=== PATIENT | female | born 1945 | race Hispanic/Latino ===

== ENCOUNTER 2018-01-17 11:25 | Outpatient (CLI) | payer MEDICARE | END 2018-01-17 11:26 | disposition home or self-care (01) | LOC: BICMAMMO 11:25 | PROVIDERS: ATTEND Nurse Practitioner Family | DX: Z12.31 Encounter for screening mammogram for malignant neoplasm of breast (principal) | CPT/HCPCS: 77063; 77067 ==

== ENCOUNTER 2018-08-30 22:19 | Emergency (ER) | payer MEDICARE | END 2018-08-30 22:53 | disposition left against medical advice (07) | LOC: ERS 22:19 | DX: Z53.21 Procedure and treatment not carried out due to patient leaving prior to being seen by health care provider (principal) ==

== ENCOUNTER 2019-09-23 13:27 | Outpatient (CLI) | payer MEDICARE ==
--- NOTE | 2019-09-23 14:49 | MMO ---
Bilateral MAMMO Bilat Screen [facility]. CLINICAL HISTORY: Patient is 74 years old and is seen for screening. The patient has no family history of breast cancer. The patient has no personal history of cancer. VIEWS: The views performed were: bilateral craniocaudal with tomosynthesis and bilateral mediolateral oblique with tomosynthesis. FILMS COMPARED: The present examination has been compared to prior imaging studies performed at [facility] on 11/15/2014, 12/27/2015, 12/28/2016 and 01/17/2018. This study has been interpreted with the assistance of computer-aided detection. MAMMOGRAM FINDINGS: There are scattered fibroglandular densities. There are no suspicious masses, suspicious calcifications, or new areas of architectural distortion. IMPRESSION: THERE IS NO MAMMOGRAPHIC EVIDENCE OF MALIGNANCY. A ROUTINE FOLLOW-UP MAMMOGRAM IN 1 YEAR IS RECOMMENDED. THE RESULTS OF THIS EXAM WERE SENT TO THE PATIENT. ACR BI-RADS Category 1 - Negative MAMMOGRAPHY NOTE: 1. A negative mammogram report should not delay a biopsy if a dominant of clinically suspicious mass is present. 2. Approximately 10% to 15% of breast cancers are not detected by mammography. 3. Adenosis and dense breasts may obscure an underlying neoplasm. Reported by: HENNY HENNING MD Electonically Signed: [id number]
== END 2019-09-23 13:28 | disposition home or self-care (01) ==
LOC: BICMAMMO 13:27
PROVIDERS: ATTEND Nurse Practitioner Family
DX: Z12.31 Encounter for screening mammogram for malignant neoplasm of breast (principal)
CPT/HCPCS: 77063; 77067

== ENCOUNTER 2021-08-25 18:13 | Emergency (ER) | payer MEDICARE ==
[~2021-08-25 18:13] MED LIST: Iopamidol 370 76% 100 ML VIAL ONE
[2021-08-25] MEDS ORDERED: Ondansetron PF 4 MG/2 ML Vial ONE (18:58)
[2021-08-25] MEDS ORDERED: Dicyclomine 20 MG/2 ML VIAL ONE (18:58)
[2021-08-25 19:20] LABS: #Eosinphils 0.1 thou/uL (0.0-0.7); #Lymphocytes 1.3 thou/uL (1.20-3.40); #Monocytes 0.6 thou/uL (0.11-0.59); #Neutrophils 4.5 thou/uL (1.40-6.50); %Basophils 0.2 % (0.0-1.0); %Eosinophils 1.8 % (0.0-10.0); %Lymphocytes 19.2 % (21.0-51.0); %Monocytes 9.6 % (0.0-10.0); %Neutrophils 69.1 % (42.0-75.0); Hemoglobin 13.5 g/dL (12.0-16.0); Mean Corpuscular HGB CONC 29.7 g/dL (32.0-36.0); Mean Corpuscular Hemoglobin 27.7 pg (27.0-31.0); Mean Corpuscular Volume 93.3 fL (78.0-98.0); Mean Platelet Volume 7.6 fL (7.4-10.4); Platelet Count 222 thou/uL (130-400); RBC Distribution Width 13.7 % (11.5-14.5); Red Blood Cell (RBC) Count 4.87 mill/uL (4.20-5.40); White Blood Cell (WBC) Count 6.5 thou/uL (4.8-10.8)
[2021-08-25 19:33] LABS: Band 18 % (5-11); Eosinophils 4 % (0-10); Lymphocytes 22 % (21-51); MDiff Complete? YES; Monocytes 9 % (0-10); Neutrophil 47 % (42-75); Platelet Morphology Comment Appears Adequate; RBC Morphology Normal
[2021-08-25 19:40] LABS: ALT (SGPT) 16 U/L (8-55); AST (SGOT) 21 U/L (5-34); Albumin 3.3 g/dL (3.4-4.8); Alkaline Phosphatase 98 U/L (40-110); Anion Gap 13 mmol/L (10-20); BUN (Urea Nitrogen) 10 mg/dL (9.8-20.1); Bilirubin, Total 0.5 mg/dL (0.2-1.2); Calc. Creatinine Clearance 0 mL/min (70-130); Calcium 9.4 mg/dL (7.8-10.44); Carbon Dioxide 23 mmol/L (23-31); Chloride 102 mmol/L (98-107); Globulin 3.8 g/dL (2.4-3.5); Glucose 195 mg/dL (83-110); Lipase 12 U/L (8-78); Potassium 3.8 mmol/L (3.5-5.1); Protein, Total 7.1 g/dL (5.8-8.1); Sodium 134 mmol/L (136-145)
== END 2021-08-25 23:20 | disposition home or self-care (01) ==
LOC: ERS 18:13
DX: K52.9 Noninfective gastroenteritis and colitis, unspecified (principal); I10 Essential (primary) hypertension; E78.5 Hyperlipidemia, unspecified; E11.9 Type 2 diabetes mellitus without complications; Z79.4 Long term (current) use of insulin; Z79.899 Other long term (current) drug therapy
CPT/HCPCS: 36415; 74177; 80053; 83690; 84484; 85025; 93005; 96372; 96374; J0500; J2405; Q9967

== ENCOUNTER 2021-11-13 10:07 | Outpatient (CLI) | payer MEDICARE | END 2021-11-13 10:08 | disposition home or self-care (01) | LOC: BICRAD 10:07 | PROVIDERS: ATTEND Nurse Practitioner Family | DX: M47.816 Spondylosis without myelopathy or radiculopathy, lumbar region (principal); M43.16 Spondylolisthesis, lumbar region | CPT/HCPCS: 72110 ==

== ENCOUNTER 2022-03-20 15:52 | Outpatient (CLI) | payer MEDICARE, OTHER | END 2022-03-20 15:53 | disposition home or self-care (01) | LOC: BICRAD 15:52 | PROVIDERS: ATTEND Family Medicine | DX: M79.671 Pain in right foot (principal); M19.071 Primary osteoarthritis, right ankle and foot ==

== ENCOUNTER 2022-07-18 13:39 | Emergency (ER) | payer OTHER, MEDICAID ==
[2022-07-18] MEDS ORDERED: Acetaminophen 500 MG TAB ONE (16:25)
[2022-07-18] MEDS ORDERED: Ketorolac Tromethamine 30 MG/ML VIAL ONE (16:25)
== END 2022-07-18 17:03 | disposition home or self-care (01) ==
LOC: ERS 13:39
DX: M25.512 Pain in left shoulder (principal); E78.5 Hyperlipidemia, unspecified; I10 Essential (primary) hypertension; E11.9 Type 2 diabetes mellitus without complications; W17.2XXA Fall into hole, initial encounter; Y93.01 Activity, walking, marching and hiking; Z79.4 Long term (current) use of insulin
CPT/HCPCS: 70450; 72125; 96372; J1885

== ENCOUNTER 2022-08-16 12:37 | Outpatient (CLI) | payer OTHER, MEDICAID | END 2022-08-16 12:38 | disposition home or self-care (01) | LOC: SCSMRI 12:37 | PROVIDERS: ATTEND Specialist | DX: M51.16 Intervertebral disc disorders with radiculopathy, lumbar region (principal); M47.26 Other spondylosis with radiculopathy, lumbar region; M89.38 Hypertrophy of bone, other site | CPT/HCPCS: 72148 ==

== ENCOUNTER 2022-11-15 22:45 | Observation (INO) | payer OTHER ==
[2022-11-15] MEDS ORDERED: Ondansetron ODT 4 MG TAB ONE (23:17)
[2022-11-15] MEDS ORDERED: Meclizine HCl 25 MG TAB ONE (23:17)
[2022-11-15 23:42] LABS: #Basophils 0.1 thou/uL (0.0-0.2); #Eosinphils 0.1 thou/uL (0.0-0.7); #Monocytes 0.6 thou/uL (0.11-0.59); #Neutrophils 3.5 thou/uL (1.40-6.50); %Basophils 0.9 % (0.0-1.0); %Eosinophils 1.7 % (0.0-10.0); %Lymphocytes 26.7 % (21.0-51.0); %Monocytes 9.9 % (0.0-10.0); %Neutrophils 60.5 % (42.0-75.0); Hemoglobin 13.4 g/dL (12.0-16.0); Mean Corpuscular HGB CONC 32.1 g/dL (32.0-36.0); Mean Corpuscular Hemoglobin 29.3 pg (27.0-31.0); Mean Corpuscular Volume 91.3 fl (78.0-98.0); Platelet Count 254 10x3/uL (130-400); RBC Distribution Width 13.5 % (11.5-14.5); Red Blood Cell (RBC) Count 4.58 mill/uL (4.20-5.40); White Blood Cell (WBC) Count 5.8 10x3/uL (4.8-10.8)
[2022-11-16 00:07] LABS: ALT (SGPT) 12 U/L (8-55); AST (SGOT) 16 U/L (5-34); Albumin 3.6 g/dL (3.4-4.8); Alkaline Phosphatase 96 U/L (40-110); Anion Gap 12 mmol/L (10-20); BUN (Urea Nitrogen) 14 mg/dL (9.8-20.1); Bilirubin, Total 0.5 mg/dL (0.2-1.2); Calc. Creatinine Clearance 0 mL/min (70-130); Calcium 9.5 mg/dL (7.8-10.44); Carbon Dioxide 24 mmol/L (23-31); Chloride 104 mmol/L (98-107); Estimated GFR 76; Globulin 3.1 g/dL (2.4-3.5); Glucose 124 mg/dL (83-110); Potassium 3.9 mmol/L (3.5-5.1); Protein, Total 6.7 g/dL (5.8-8.1); Sodium 136 mmol/L (136-145)
[2022-11-16] MEDS ORDERED: Ondansetron ODT 4 MG TAB ONE (00:18)
[2022-11-16] MEDS ORDERED: Ondansetron PF 4 MG/2 ML Vial IVP PRN (06:59)
[2022-11-16] MEDS ORDERED: Acetaminophen 325 MG TAB PO PRN (06:59)
[2022-11-16] MEDS ORDERED: Dextrose 5% in Water 1,000 ML IV PRN (06:59)
[2022-11-16] MEDS ORDERED: Dextrose 50% Abboject 50 ML SYRINGE SLOW IVP PRN (06:59)
[2022-11-16] MEDS ORDERED: Ondansetron ODT 4 MG TAB PO PRN (06:59)
[2022-11-16] MEDS ORDERED: HumaLOG 300 UNITS/3 ML VIAL SC PRN ×3 (07:02→07:47)
[2022-11-16] MEDS ORDERED: hydrALAZINE 20 MG/ML VIAL SLOW IVP PRN (07:02)
[2022-11-16] MEDS ORDERED: Meclizine HCl 25 MG TAB PO PRN (07:30)
[2022-11-16] MEDS ORDERED: Aspirin 81 mg Enteric Coated Tablet PO SCH (07:30)
[2022-11-16 07:43] VITALS: BMI 40.9
[2022-11-16 08:27] LABS: Hemoglobin A1c 8.1 % (4.0-6.0)
[2022-11-16 08:30] LABS: Cardiac Risk 2.9 (Less than 4.5)
[2022-11-16] MEDS ORDERED: Non-Formulary Item 1 EACH (Levemir Flexpen [Levemir Flexpen] 100 UNITS/ML Pen) SC SCH (09:00)
[2022-11-16] MEDS ORDERED: Non-Formulary Item 1 EACH (Levemir Flexpen [Levemir Flexpen] 20 UNIT) SC SCH (09:00)
[2022-11-16] MEDS ORDERED: Losartan 25 MG TAB PO SCH (09:00)
[2022-11-16] MEDS ORDERED: Non-Formulary Item 1 EACH (Losartan Potassium [Cozaar] 50 MG Tab) PO SCH (09:00)
[2022-11-16] MEDS ORDERED: Lorazepam 0.5 MG TAB PO ONE (09:35)
[2022-11-16] MEDS ORDERED: Lorazepam 0.5 MG TAB PO SCH (09:45)
[2022-11-16] MEDS ORDERED: INSULIN ASPART 10 UNIT SC SCH (11:30)
[2022-11-16] MEDS ORDERED: HumaLOG 300 UNITS/3 ML VIAL SC SCH (11:30)
[2022-11-16] MEDS ORDERED: INSULIN ASPART 100 UNIT/ML SC SCH (11:30)
[2022-11-16] MEDS: HumaLOG 300 UNITS/3 ML VIAL SC SCH ×2 (13:10→18:05)
[2022-11-16 16:10] VITALS: TEMP 97.1
[2022-11-16 17:12] VITALS: BP 119/54
[2022-11-16] MEDS ORDERED: Simvastatin 40 MG TAB PO SCH (21:00)
[2022-11-16] MEDS ORDERED: Insulin Glargine 30 UNITS/0.3 ML VIAL SC SCH (21:00)
[2022-11-16] MEDS ORDERED: Atorvastatin Calcium 20 MG TAB PO SCH (21:00)
[2022-11-16] MEDS ORDERED: Fluticasone Propionate Nasal Spray 16 gm Bottle NASAL SCH (21:00)
[2022-11-17] MEDS ORDERED: Aspirin 81 mg Enteric Coated Tablet PO SCH (09:00)
== END 2022-11-16 18:30 | disposition home or self-care (01) ==
LOC: ERS 22:45 → NEURO 11-16 04:26
PROVIDERS: ADMIT Emergency Medicine; ATTEND Emergency Medicine
DX: H81.10 Benign paroxysmal vertigo, unspecified ear (principal); J30.0 Vasomotor rhinitis; E11.9 Type 2 diabetes mellitus without complications; I10 Essential (primary) hypertension; E78.5 Hyperlipidemia, unspecified; M54.50 Low back pain, unspecified; M19.90 Unspecified osteoarthritis, unspecified site; Z79.4 Long term (current) use of insulin; Z79.899 Other long term (current) drug therapy; Z88.0 Allergy status to penicillin
CPT/HCPCS: 36415; 36416; 70450; 70551; 80053; 80061; 83036; 84443; 85025; 93005; 93306; 96372; 99284; G0378; J1650; J1815; Q0162

== ENCOUNTER 2023-04-17 21:26 | Emergency (ER) | payer OTHER, MEDICAID ==
[2023-04-17 22:17] LABS: #Basophils 0.1 thou/uL (0.0-0.2); #Eosinphils 0.7 thou/uL (0.0-0.7); #Monocytes 0.8 thou/uL (0.11-0.59); #Neutrophils 4.4 thou/uL (1.40-6.50); %Eosinophils 9.1 % (0.0-10.0); %Lymphocytes 18.1 % (21.0-51.0); %Monocytes 10.8 % (0.0-10.0); %Neutrophils 60.7 % (42.0-75.0); Hematocrit 39.9 % (36.0-47.0); Hemoglobin 13.4 g/dL (12.0-16.0); Mean Corpuscular HGB CONC 33.6 g/dL (32.0-36.0); Mean Corpuscular Volume 89.3 fl (78.0-98.0); Mean Platelet Volume 9.8 fL (7.4-10.4); Platelet Count 222 10x3/uL (130-400); RBC Distribution Width 13.1 % (11.5-14.5); Red Blood Cell (RBC) Count 4.47 mill/uL (4.20-5.40); White Blood Cell (WBC) Count 7.2 10x3/uL (4.8-10.8)
[2023-04-17 22:42] LABS: ALT (SGPT) 16 U/L (8-55); AST (SGOT) 21 U/L (5-34); Albumin 3.8 g/dL (3.4-4.8); Alkaline Phosphatase 94 U/L (40-110); Anion Gap 14 mmol/L (10-20); BUN (Urea Nitrogen) 11 mg/dL (9.8-20.1); Bilirubin, Total 0.4 mg/dL (0.2-1.2); Calc. Creatinine Clearance 0 mL/min (70-130); Calcium 9.9 mg/dL (7.8-10.44); Carbon Dioxide 22 mmol/L (23-31); Chloride 103 mmol/L (98-107); Estimated GFR 86; Globulin 2.8 g/dL (2.4-3.5); Glucose 139 mg/dL (83-110); Potassium 3.9 mmol/L (3.5-5.1); Protein, Total 6.6 g/dL (5.8-8.1); Sodium 135 mmol/L (136-145)
[2023-04-17 22:46] LABS: Troponin I Less than 0.010 ng/mL (< 0.028)
== END 2023-04-17 23:43 | disposition home or self-care (01) ==
LOC: ERS 21:26
DX: R00.2 Palpitations (principal); I10 Essential (primary) hypertension; E11.9 Type 2 diabetes mellitus without complications
CPT/HCPCS: 36415; 71045; 80053; 84484; 85025; 93005

== ENCOUNTER 2023-07-20 16:04 | Emergency (ER) | payer OTHER, MEDICAID ==
[2023-07-20 17:32] LABS: #Eosinphils 0.1 thou/uL (0.0-0.7); #Monocytes 0.7 thou/uL (0.11-0.59); #Neutrophils 3.6 thou/uL (1.40-6.50); %Basophils 0.7 % (0.0-1.0); %Lymphocytes 25.6 % (21.0-51.0); %Monocytes 11.2 % (0.0-10.0); %Neutrophils 60.2 % (42.0-75.0); Hematocrit 41.5 % (36.0-47.0); Mean Corpuscular HGB CONC 33.7 g/dL (32.0-36.0); Mean Corpuscular Hemoglobin 29.9 pg (27.0-31.0); Mean Corpuscular Volume 88.5 fl (78.0-98.0); Mean Platelet Volume 10.3 fL (7.4-10.4); Platelet Count 252 10x3/uL (130-400); RBC Distribution Width 13.2 % (11.5-14.5); Red Blood Cell (RBC) Count 4.69 mill/uL (4.20-5.40); White Blood Cell (WBC) Count 5.9 10x3/uL (4.8-10.8)
[2023-07-20 18:00] LABS: ALT (SGPT) 13 U/L (8-55); AST (SGOT) 21 U/L (5-34); Albumin 3.6 g/dL (3.4-4.8); Alkaline Phosphatase 111 U/L (40-110); Anion Gap 14 mmol/L (10-20); BUN (Urea Nitrogen) 11 mg/dL (9.8-20.1); Bilirubin, Total 0.6 mg/dL (0.2-1.2); Calc. Creatinine Clearance 0 mL/min (70-130); Calcium 9.5 mg/dL (7.8-10.44); Carbon Dioxide 22 mmol/L (23-31); Chloride 101 mmol/L (98-107); Estimated GFR 73; Globulin 3.5 g/dL (2.4-3.5); Glucose 305 mg/dL (83-110); Protein, Total 7.1 g/dL (5.8-8.1); Sodium 133 mmol/L (136-145)
== END 2023-07-20 19:11 | disposition home or self-care (01) ==
LOC: ERS 16:04
DX: J22 Unspecified acute lower respiratory infection (principal); E11.65 Type 2 diabetes mellitus with hyperglycemia; Z79.4 Long term (current) use of insulin; Z79.899 Other long term (current) drug therapy
CPT/HCPCS: 36415; 71045; 80053; 85025

== ENCOUNTER 2023-12-31 10:12 | Outpatient (CLI) | payer MEDICARE | END 2023-12-31 10:13 | disposition home or self-care (01) | LOC: BICCT 10:12 | PROVIDERS: ATTEND Student in an Organized Health Care Education/Training Program | DX: R26.81 Unsteadiness on feet (principal) | CPT/HCPCS: 70470; 82565 ==

== ENCOUNTER 2024-07-22 14:35 | Emergency (ER) | payer MEDICARE ==
[2024-07-22 16:11] LABS: #Basophils 0.04 10x3/uL (0.0-0.2); %Basophils 0.8 % (0.0-1.0); %Eosinophils 1.6 % (0.0-10.0); %Lymphocytes 23.7 % (21.0-51.0); %Monocytes 10.2 % (0.0-10.0); %Neutrophils 63.5 % (42.0-75.0); Hematocrit 38.5 % (36.0-47.0); Hemoglobin 12.8 g/dL (12.0-16.0); Mean Corpuscular HGB CONC 33.2 g/dL (32.0-36.0); Mean Corpuscular Hemoglobin 27.6 pg (27.0-31.0); Mean Corpuscular Volume 83.2 fL (78.0-98.0); Mean Platelet Volume 10.2 fL (7.4-10.4); Platelet Count 216 10x3/uL (130-400); RBC Distribution Width 15.3 % (11.5-14.5); Red Blood Cell (RBC) Count 4.63 mill/uL (4.20-5.40)
[2024-07-22 16:30] LABS: Anion Gap 12 mmol/L (10-20); BUN (Urea Nitrogen) 12 mg/dL (9.8-20.1); Calc. Creatinine Clearance 0 mL/min (70-130); Calcium 9.5 mg/dL (7.8-10.44); Carbon Dioxide 24 mmol/L (23-31); Chloride 103 mmol/L (98-107); Estimated GFR 90; Glucose 475 mg/dL (83-110); Potassium 4.4 mmol/L (3.5-5.1); Sodium 135 mmol/L (136-145)
[2024-07-22 18:16] LABS: Bacteria/HPF None Seen HPF (None Seen); Bilirubin Negative (Negative); Blood, Urine Negative (Negative); CAUTI Indications for Culture Pelvic or flank pain; Clarity Clear (Clear); Glucose, Urine (Dipstick) Greater than 1000 mg/dL (Negative); Ketone, Urine Negative (Negative); Leukocyte 250 Leu/uL (Negative); Nitrite Negative (Negative); Protein, Urine (Dipstick) Negative (Neg-Trace); RBC/HPF 0-3 HPF (0-3); Specific Gravity, Urine 1.037 (1.002-1.036); Urobilinogen Normal mg/dL (Less than 2); pH, Urine 6.5 (5.0-9.0)
[2024-07-22 18:23] LABS: Urine Culture Reflex No No
== END 2024-07-22 19:57 | disposition home or self-care (01) ==
LOC: ERS 14:35
DX: E11.65 Type 2 diabetes mellitus with hyperglycemia (principal); I10 Essential (primary) hypertension; E78.5 Hyperlipidemia, unspecified; Z79.84 Long term (current) use of oral hypoglycemic drugs; Z79.82 Long term (current) use of aspirin; Z79.899 Other long term (current) drug therapy
CPT/HCPCS: 36416; 80048; 81001; 83930; 85025; 96360

== ENCOUNTER 2025-01-06 10:15 | Outpatient (CLI) | payer MEDICARE | END 2025-01-06 10:16 | disposition home or self-care (01) | LOC: BICMAMMO 10:15 | PROVIDERS: ATTEND Student in an Organized Health Care Education/Training Program | DX: Z12.31 Encounter for screening mammogram for malignant neoplasm of breast (principal) | CPT/HCPCS: 77063; 77067 ==

== ENCOUNTER 2025-03-17 09:03 | Outpatient (CLI) | payer OTHER | END 2025-03-17 09:04 | disposition home or self-care (01) | LOC: BICMAMMO 09:03 | PROVIDERS: ATTEND Family Medicine | DX: Z78.0 Asymptomatic menopausal state (principal); M81.0 Age-related osteoporosis without current pathological fracture | CPT/HCPCS: 77080 ==